=== PATIENT | male | born 1945 | race Caucasian/White ===

== ENCOUNTER → 2017-04-29 08:35 | Outpatient (CLI) | payer MEDICARE ==
[2016-08-08 14:28] VITALS: BMI 25.1
[~2017-04-29 08:35] MED LIST: AMBIEN5 MG PO; ASPIRIN325 MG PO; AVAPRO300 MG PO; BUPROPION XL300 MG PO; COREG6.25 MG PO; CRESTOR10 MG PO; DEPLIN15 MG PO; FISH OIL 1,2001 CAP PO; GLUCOPHAGE500 MG PO; HYDROCHLOROTH12.5 M1 PO; HYDROCODONE-APA1 TAB PO; LIVALO4 MG PO; NEXIUM20 MG PO; NEXIUM40 MG PO; PERCOCET 10/3251 TA1 PO; TRAZODONE HCL50 MG PO; VITAMIN D31000 UNI2 PO
== END | disposition home or self-care (01) ==
LOC: D.MRI 08:30
DX: M25.561 Pain in right knee (principal)

== ENCOUNTER 2017-05-22 09:10 | Day surgery (SDC) | payer MEDICARE ==
[~2017-05-22 09:10] MED LIST changes: +ACETAMINOPHEN500 M1 PO; +CO Q-10150 MG PO; +LYRICA150 MG PO; +MAGNESIUM GLUC500 M1 PO; +VIAGRA100 MG PO
[2017-05-22 10:44] VITALS: BP 149/72; BMI 25.1
[2017-05-22 10:50] LABS: CALC OSMOLALITY 288 mosm/kg (275-300); CALCIUM 9.2 mg/dL (8.5-10.1); CARBON DIOXIDE 24.1 mmol/L (21.0-32.0); CHLORIDE - SERUM 106 mmol/L (98-107); GLUCOSE 107 mg/dL (74-106); POTASSIUM - SERUM 4.5 mmol/L (3.5-5.1); SODIUM 139 mmol/L (136-145); UREA NITROGEN 42 mg/dL (7-18); eGFR NON AFRICAN AMERICAN 78 mL/min (90-120)
[2017-05-22 11:19] LABS: HEMATOCRIT 35.4 % (42.0-54.0); HEMOGLOBIN 11.6 g/dL (13.5-17.5); MCH 29.7 pg (26.0-34.0); MCHC 32.8 g/dL (31.0-37.0); MCV 90.8 fL (80.0-100.0); MEAN PLATELET VOLUME 9.2 fL (7.4-10.4); RBC 3.9 10x6/uL (4.20-6.10); RDW 13.8 % (11.5-14.5); WBC 8.2 10x3/uL (4.8-10.8)
[2017-05-22] MEDS ORDERED: HYDROCODONE-APA1 TAB PO (13:29)
--- NOTE | 2017-05-22 16:04 | NUR ---
1545 DISCHARGE INSTRUCTIONS COMPLETE. PRESCRIPTIONS GIVEN-DELYAED DISCHARGE DUE TO DR NOT SIGNING PRESCRITPION. PT HAS NO QUESTIONS OR CONCERNS. ESCORTED OUT BY VOLUNTEER.
--- NOTE | 2017-05-26 11:28 | OP ---
PATIENT NAME: PIOTR HINOJOSA MEDICAL RECORD: [id number] :47 LOCATION:D.OPS ADMISSION DATE: SURGEON: AAMIR CAZARES MD DATE OF OPERATION: 05/22/2017 PREOPERATIVE DIAGNOSIS: Medial meniscus tear of the right knee. POSTOPERATIVE DIAGNOSIS: Medial meniscus tear of the right knee. PROCEDURE: Arthroscopic partial medial meniscectomy. SURGEON: Aamir Cazares MD ANESTHESIA: General. INTRAOPERATIVE COMPLICATIONS: None. SUMMARY OF PATHOLOGIC FINDINGS: He had a complex tear of the posterior horn of the medial meniscus consistent with preoperative MRI. OPERATIVE SUMMARY IN DETAIL: After obtaining the appropriate preoperative orthopedic surgery consents as well as anesthetic consultation, evaluation and clearance, the patient was brought to the operating room and placed on the operating table in supine position. After general laryngeal mask was administered, tourniquet was placed about the proximal aspect of the right lower extremity. Right lower extremity was then prepped and draped in routine sterile fashion. The leg was elevated, exsanguinated, and tourniquet inflated to 250 mmHg. Routine inferolateral portal was established followed by superomedial portal and inferomedial portal. Diagnostic arthroscopy was done. The patellofemoral compartment as well as lateral compartment was pristine. Minimal amount of arthritis was seen in the medial compartment. Complex tear of the posterior horn of the medial meniscus was noted. A combination of meniscotome and an arthroscopic resector were utilized to debride the meniscus back to stable meniscal elements. Having completed this, the knee was insufflated with 30 cc of 0.25% Marcaine with epinephrine. Arthroscopy portals were closed in routine interrupted fashion using 4-0 Prolene. Sterile dressings were applied. Tourniquet was deflated. The patient was awakened and taken to the recovery room in stable condition. All final needle and sponge counts were correct. TRANSINT:[id number] Voice Confirmation ID: [id number] DOCUMENT ID: [id number] AAMIR CAZARES MD at 1128 CC: [id number] DICTATION DATE: 05/22/17 1332 MESSAGE BROKER DEVELOPER: 05/22/[address] [facility] 05/22/17 [id number] [place] [address]
== END 2017-05-22 15:45 | disposition home or self-care (01) ==
LOC: D.OPS 09:10
PROVIDERS: Anesthesiology
DX: S83.241A Other tear of medial meniscus, current injury, right knee, initial encounter (principal); I10 Essential (primary) hypertension; E11.9 Type 2 diabetes mellitus without complications; Z95.5 Presence of coronary angioplasty implant and graft; Z01.812 Encounter for preprocedural laboratory examination

== ENCOUNTER 2019-03-18 13:22 | Inpatient (IN) | payer MEDICARE ==
[~2019-03-18] VITALS: Ht 175.3 cm; Wt 74.4 kg
[2019-03-18] MEDS ORDERED: CRESTOR20 MG PO (13:33)
[2019-03-18 14:19] LABS: ALBUMIN 3.5 g/dL (3.4-5.0); ANION GAP 12.1 mmol/L (8-16); BILIRUBIN - TOTAL 0.77 mg/dL (0.2-1.3); CARBON DIOXIDE 27.2 mmol/L (21.0-32.0); CREATININE - SERUM 1.2 mg/dL (0.6-1.3); POTASSIUM - SERUM 4.3 mmol/L (3.5-5.1); PROTEIN - SERUM 7.3 g/dL (6.4-8.2)
[2019-03-18 14:27] LABS: TROPONIN-I 0.019 ng/mL (0.000-0.060)
--- NOTE | 2019-03-18 14:30 | NUR ---
SAMI OWUSU, AT BEDSIDE UPDATING PT ON POC.
[2019-03-18 14:39] LABS: BASOPHILS 0.2 % (0-2); EOSINOPHILS 0.4 % (0-7); HEMATOCRIT 37.7 % (42.0-54.0); HEMOGLOBIN 12.7 g/dL (13.5-17.5); IMMATURE GRANULOCYTES 0.2 % (0-5); LYMPHOCYTES 9.2 % (15-50); MCH 27.5 pg (26.0-34.0); MCHC 33.7 g/dL (31.0-37.0); MCV 81.8 fL (80.0-100.0); MEAN PLATELET VOLUME 9.1 fL (7.4-10.4); MONOCYTES 4.9 % (2-11); NEUTROPHILS 85.1 % (40-80); PLATELET COUNT 205 10x3/uL (130-400); RBC 4.61 10x6/uL (4.20-6.10); RDW 15.4 % (11.5-14.5); WBC 13.2 10x3/uL (4.8-10.8)
[2019-03-18 14:55] LABS: APPEARANCE CLEAR (CLEAR); BILIRUBIN NEGATIVE (NEGATIVE); COLOR STRAW (YELLOW); GLUCOSE NEGATIVE (NEGATIVE); KETONE NEGATIVE (NEGATIVE); NITRITE NEGATIVE (NEGATIVE); PROTEIN NEGATIVE (NEGATIVE); SPECIFIC GRAVITY 1.015 (1.005-1.020); UROBILINOGEN NORMAL (NORMAL)
--- NOTE | 2019-03-18 15:03 | NUR ---
1459-RECEIVED REPORT FROM FELTON IN THE ED.
--- NOTE | 2019-03-18 15:14 | NUR ---
1509-TO ROOM VIA WHEELCHAIR ON ROOM AIR. IV INFUSING TO LEFT HAND. WILL ADMIT.
[2019-03-18 15:19] VITALS: BP 130/64; BMI 24.4
[2019-03-18 15:24] VITALS: BP 130/64
--- NOTE | 2019-03-18 16:06 | NUR ---
PATIENT TO USE THE RESTROOM TO VOID SOON HE GOT TO THE ROOM.
--- NOTE | 2019-03-18 16:53 | NUR ---
BILATERAL SCD'S PLACED ON PATIENT AND TURNED ON.
--- NOTE | 2019-03-18 19:29 | NUR ---
REPORT REC'D. PT SEMI FOWLERS IN BED. NO S/S OF DISTRESS. BREATHING EVEN AND UNLABORED. PT DENIES ANY NEEDS AT THIS TIME. CALL LIGHT WITHIN REACH. BED IN LOWEST POSITION. WILL CONT WITH POC.
[2019-03-18 20:00] VITALS: BP 110/54
[2019-03-19] VITALS: BP 118/58
--- NOTE | 2019-03-19 00:23 | NUR ---
PT IS RESTING AT THIS TIME. NO S/S OF DISTRESS. BREATHING EVEN AND UNLABORED. CALL LIGHT WITHIN REACH. BED IN LOWEST POSITION. WILL CONT WITH POC.
[2019-03-19 04:00] VITALS: BP 102/48
[2019-03-19 05:36] LABS: BASOPHILS 0.2 % (0-2); HEMATOCRIT 32.8 % (42.0-54.0); HEMOGLOBIN 10.7 g/dL (13.5-17.5); IMMATURE GRANULOCYTES 0.1 % (0-5); LYMPHOCYTES 13.9 % (15-50); MCHC 32.6 g/dL (31.0-37.0); MCV 82.8 fL (80.0-100.0); MONOCYTES 5.8 % (2-11); RBC 3.96 10x6/uL (4.20-6.10); WBC 12.4 10x3/uL (4.8-10.8)
[2019-03-19 05:40] LABS: PLATELET COUNT 163 10x3/uL (130-400)
[2019-03-19 05:54] LABS: ALBUMIN 2.8 g/dL (3.4-5.0); ALKALINE PHOSPHATASE 75 U/L (46-116); BILIRUBIN - TOTAL 0.55 mg/dL (0.2-1.3); CALC OSMOLALITY 281 mosm/kg (275-300); CALCIUM 8.4 mg/dL (8.5-10.1); CARBON DIOXIDE 29.3 mmol/L (21.0-32.0); CHLORIDE - SERUM 104 mmol/L (98-107); CREATININE - SERUM 0.9 mg/dL (0.6-1.3); GLUCOSE 103 mg/dL (74-106); MAGNESIUM - SERUM 1.5 mg/dL (1.8-2.4); PHOSPHOROUS 2.6 mg/dL (2.5-4.9); POTASSIUM - SERUM 3.8 mmol/L (3.5-5.1); PROTEIN - SERUM 6.1 g/dL (6.4-8.2); SODIUM 139 mmol/L (136-145); TROPONIN-I < 0.017 ng/mL (0.000-0.060); UREA NITROGEN 24 mg/dL (7-18); eGFR NON AFRICAN AMERICAN 88 mL/min (90-120)
[2019-03-19 05:55] LABS: ALT (SGPT) 26 U/L (10-68)
--- NOTE | 2019-03-19 06:11 | NUR ---
I have reviewed this patient and I concur with the Shift Assessment completed by the Licensed Practical Nurse today this shift.
--- NOTE | 2019-03-19 06:12 | NUR ---
MAGNESIUM ADMINISTERED, PER ORDER R/T MAGNESIUM LEVEL THIS AM OF 1.5. SERUM MAGNESIUM LEVEL TO BE DRAWN @ 1030. BED IN LOWEST POSITION, SR X2, CALL LIGHT WITHIN REACH. WILL CONTINUE TO MONITOR.
--- NOTE | 2019-03-19 06:39 | NUR ---
PT RESTING IN BED WITH EYES CLOSED, RESPIRATIONS EVEN AND NONLABORED, NO S/S OF DISTRESS. AROUSES EASILY TO VOICE. PROTONIX ADMINISTERED, PER ORDER. DENIES PAIN AND NEEDS AT THIS TIME. BED IN LOWEST POSITION, SR X2, CALL LIGHT WITHIN REACH. WILL CONTINUE TO MONITOR.
--- NOTE | 2019-03-19 07:10 | NUR ---
ROUNDING DONE WITH PATIENT SITTING UP IN THE BED WITH NO NEEDS VOICED. SCD'S ON AND IN USE. LEFT HAND PIV SEEN WITH NS INFUSING AT 125 CC/HR. ON 2L PER NC. ON EP, K+ WAS 3.8, MAG 1.5 AND ALREADY COVERED. NEW LAB ORDERED FOR MAG. STRICT I AND O. ON HEART MONITOR SHOWING SR, HR 83.
[2019-03-19 08:37] VITALS: BP 98/58
--- NOTE | 2019-03-19 10:27 | NUR ---
PATIENT IS PLACED IN TEMORARY DROPLET ISOLATION FOR STAPH IN SPUTUM.
[2019-03-19 11:37] LABS: INR 1.14 (0.85-1.17); PROTIME 14.1 SECONDS (11.6-15.0)
[2019-03-19 11:38] LABS: D-DIMER-QUANTITATIVE 1.05 ug/mLFEU (0.20-0.54)
--- NOTE | 2019-03-19 12:01 | NUR ---
PATIENT IV FLUIDS HAS BEEN CHANGED TO SALINE LOCK ORDERED. NPO FOR CTA.
--- NOTE | 2019-03-19 12:18 | NUR ---
RETURNS FROM CTA, CAN NOW EAT. LUNCH TRAY GIVEN TO PATIENT. AT BEDSIDE.
[2019-03-19 12:30] VITALS: BP 98/52
--- NOTE | 2019-03-19 14:45 | EC ---
PATIENT:PIOTR HINOJOSA DATE OF SERVICE: 03/18/19 SEX: M MEDICAL RECORD: [id number] DATE OF : [birth year] LOCATION:D. D.212 AGE OF PATIENT: 74 ADMISSION DATE: 03/18/19 REFERRING PHYSICIAN: INTERPRETING PHYSICIAN: GILDA BARTON MD ECHOCARDIOGRAM REPORT ECHO CHARGES 4 ECHO COMPLETE Date: 03/19/19 CLINICAL DIAGNOSIS: CAD/SOB/FEVER/COUGH, HX CABG/MITRAL VALVE REPAIR ECHOCARDIOGRAPHIC MEASUREMENTS (adult normal given) AC root (d.<3.7cm) 2.6 cm LV Septum d (<1.2 cm> 1.4 cm Valve Excursion 1.6 cm LV Septum (systole) 1.6 cm Left Atria (s.<4.0cm> 4.5 cm LVPW d(<1.2cm) 1.7 cm RV (d.<2.3cm) 3.3 cm LVPW (sytole) 1.9 cm LV diastole(<5.6CM) 4.7 cm MV E-F(>70mm/sec) cm LV systole 2.7 cm LVOT Diameter 1.9 cm MV exc.(>10mm) 1.6 cm Est.ejection fraction (50-75%) % DOPPLER: LVIT cm/sec A 58.0 cm/sec E 151 cm/sec LA cm/sec RVSP 64 mmHg LVOT 143 cm/sec AOP1/2T m/s Asc. Ao 159 cm/sec RVOT 78 cm/sec RA cm/sec PA 133 cm/sec AV Gradient Peak 10.08mmHg AV Mean 5.10 mmHg AV Area 2.8 cm MV Gradient Peak 8.37 mmHg MV Mean 2.85 mmHg MV Area cm COMMENTS: Conche Loader And Unloader: Jorge MCCABE Aviation Engineer: Roland Bartno TAPE# PACS Pericardial Effusion N DATE OF SERVICE: 03/19/2019 PROCEDURE: Echocardiogram. FINDINGS: 1. Left ventricular chamber size is within normal limits. Left ventricular systolic function is normal. Overall ejection fraction estimated at 55%. 2. The left atrium is mildly dilated at 4.5 cm. Right atrium and right ventricular chamber sizes are as well mildly dilated. 3. Valvular structures have normal structure and motion. ECHOCARDIOGRAM REPORT [id number] PIOTR HINOJOSA 4. Doppler interrogation reveals no significant mitral insufficiency, severe tricuspid regurgitation, no other valvular insufficiency or stenosis. Pulmonary systolic pressure is elevated estimated 64 mmHg. 5. No evidence of pericardial effusion or left ventricular thrombus. TRANSINT:[id number] Voice Confirmation ID: [id number] DOCUMENT ID: [id number] GILDA BARTON MD at 1445 CC: [id number] DICTATION DATE: 03/19/19 1420 ARTIST MODEL: 03/19/19 1438 ADM IN [place] [id number] [place] [id number]
--- NOTE | 2019-03-19 15:31 | NUR ---
TO BRONCH VIA BED AND PROPER PPE.
--- NOTE | 2019-03-19 17:01 | NUR ---
1658-BACK FROM [facility] WITH HILDA. NPO X 2 HOURS. STILL IN DROPLET ISOLATION. WILL MONITOR.
--- NOTE | 2019-03-19 17:44 | NUR ---
NO STOOL FOR THIS SHIFT TO OBTAIN FOR SPECIMEN.
--- NOTE | 2019-03-19 18:20 | NUR ---
RESTING POST BRONCH PROCEDURE. RESP ARE EVEN, AROUSES EASILY WHEN AWOKEN. WILL CONINTUE TO MONITOR.
[2019-03-19 19:29] LABS: EOS BF 2 %; MACROPHAGES BF 7 %; MESOTHELIALS BF 2 %; NEUT - BF 54 %
[2019-03-19 20:00] VITALS: BP 180/79
--- NOTE | 2019-03-19 22:38 | NUR ---
INITIAL ROUNDS COMPLETED AT 1920 HRS. PT DENIED ANY DISCOMFORT. PT IS IN DROPLET ISOLATION. ASSESSMENT COMPLETED AT 1950 HRS. SBP 180. ALERT AND ORIENTED TO PERSON,PLACE AND TIME. LÓPEZ. IV TO R HAND SL LUNGS DIMINISHED IN BASES BILAT. ABD SOFT WITH ACTIVE BS NOTED. PT REFUSES SCD'S. SR PER CM HR 96. PM MEDS GIVEN PER ORDERS. TEMP 100.8 AT 2210 HRS. TYLENOL 650MG PO GIVEN AT 2215 HRS. PT CURRENTLY RESTING WITH EYES CLOSED. RESP EVEN AND REGULAR. SR UP X2,CALL LIGHT WITHIN REACH.
[2019-03-20] VITALS: BP 98/45
--- NOTE | 2019-03-20 00:59 | NUR ---
PT AWAKE; DENIES ANY DISCOMFORT. SR UP X1,CALL LIGHT WITHIN REACH.
--- NOTE | 2019-03-20 02:09 | NUR ---
PT RESTING WITH EYES CLOSED. RESP EVEN AND REGULAR. SR UP X2, CALL LIGHT WITHIN REACH.
[2019-03-20 04:00] VITALS: BP 103/56
--- NOTE | 2019-03-20 04:19 | NUR ---
PT RESTING WITH EYES CLOSED. RESP EVEN AND REGULAR. SR UP X2, CALL LIGHT WITHIN REACH.
[2019-03-20 05:52] LABS: BASOPHILS 0.2 % (0-2); EOSINOPHILS 3.7 % (0-7); HEMATOCRIT 31.9 % (42.0-54.0); HEMOGLOBIN 10.2 g/dL (13.5-17.5); IMMATURE GRANULOCYTES 0.2 % (0-5); LYMPHOCYTES 18.4 % (15-50); MCH 26.8 pg (26.0-34.0); MCV 83.9 fL (80.0-100.0); MEAN PLATELET VOLUME 9.1 fL (7.4-10.4); MONOCYTES 6.3 % (2-11); NEUTROPHILS 71.2 % (40-80); PLATELET COUNT 153 10x3/uL (130-400); RDW 15.8 % (11.5-14.5); WBC 10.1 10x3/uL (4.8-10.8)
[2019-03-20 06:11] LABS: % SATURATION 6 % (15-55); IRON 17 ug/dl (35-150); TOTAL IRON BIND CAPACITY 250 ug/dl (260-445); UNSAT IRON BIND CAPACITY 233 ug/dl (150-375)
--- NOTE | 2019-03-20 06:18 | NUR ---
VSS. SR PE CM. AFEBRILE THIS AM. PT STAES FEELS MUCH IMPROVED. NEEDS MET; WILL CONTINUE TO MONITOR.
[2019-03-20 06:32] LABS: CALC OSMOLALITY 281 mosm/kg (275-300); CALCIUM 8.1 mg/dL (8.5-10.1); CARBON DIOXIDE 28.3 mmol/L (21.0-32.0); CHLORIDE - SERUM 106 mmol/L (98-107); FERRITIN 170 ng/mL (3-244); GLUCOSE 100 mg/dL (74-106); LDH 152 U/L (85-227); MAGNESIUM - SERUM 1.7 mg/dL (1.8-2.4); PHOSPHOROUS 2.8 mg/dL (2.5-4.9); POTASSIUM - SERUM 3.8 mmol/L (3.5-5.1); SODIUM 140 mmol/L (136-145); UREA NITROGEN 20 mg/dL (7-18); eGFR NON AFRICAN AMERICAN 78 mL/min (90-120)
--- NOTE | 2019-03-20 07:00 | NUR ---
RECEIVED REPORT. ASSUMED CARE OF PATIENT. PATIENT RESTING IN BED WITH EYES OPEN, ATTENTION TO HAND HELD TABLET. RESP EVEN AND UNALBORED. PATIENT IN DROPLET ISOLATION UNTIL CULTURES RESULTED. DENIES NEEDS. NO DISTRESS.
[2019-03-20 08:34] VITALS: BP 135/59
--- NOTE | 2019-03-20 09:04 | NUR ---
TELEMETRY REMOVED AND IV WRAPPED. PATIENT IN SHOWER. COMPLETE LINEN CHANGE PROVIDED AT THIS TIME.
[2019-03-20 12:59] VITALS: BP 108/54
--- NOTE | 2019-03-20 13:08 | NUR ---
PATIENT HAS NOT HAD A BM. UNABLE TO COLLECT STOOL SPECIMEN.
--- NOTE | 2019-03-20 13:55 | NUR ---
RESTING IN BED. RECEIVING IV ABT AT THIS TIME. NO DISTRESS. CALL LIGHT WITHIN REACH.
--- NOTE | 2019-03-20 16:31 | NUR ---
PATIENT COMPLAIN OF IV TO LEFT HAND HURTING. NO INFILTRATION NOTED. NO COMPLAINTS OF PAIN WITH FLUSHING IV. 20 GAUGE IV REMOVED FROM LEFT HAND. CATHETER TIP INTACT. NO BLEEDING FROM SITE. 2X2 GAUZE APPLIED AND SECURED WITH BANDAID. 20 GAUGE IV PLACED TO RIGHT WRIST X 1 STICK. GOOD BLOOD RETURN, EASY FLUSH. TOLERATED IV PLACEMENT WELL. TAPED, DATED AND SECURED. TOLERATING IV ABX AT THIS TIME.
--- NOTE | 2019-03-20 17:23 | NUR ---
OOB TO CHAIR AT BEDSIDE CONSUMING PM MEAL WITH ATTENTION TOWARD PERSONAL TABLET. NO DISTRESS.
[2019-03-20 17:53] VITALS: BP 139/75
[2019-03-20 20:00] VITALS: BP 129/61
--- NOTE | 2019-03-20 22:05 | NUR ---
INITIAL ROUNDS COMPLETED AT 1905 HRS. PT DENIES ANY DISCOMFORT. ASSESSMENT COMPLETED AT 1925 HRS. VSS. SR PER CM HR 83. ALERT AND ORIENTED TO PERSON,PLACE AND TIME. LÓPEZ. LUNGS DIMINISHED IN BASES BILAT. IV TO R HAND SL. PM MEDS GIVEN. STOOL SAMPLE SENT TO LAB AT 2140 HRS. PT CURRENTLY PLAYING ON HIS COMPUTER. SR UP X2, CALL LIGHT WITHIN REACH. PT ON DROPLET ISOLATION.
--- NOTE | 2019-03-20 23:57 | NUR ---
PT SITTING UP IN THE CHAIR. NO DISTRESS NOTED. CALL LIGHT WITHIN REACH.
[2019-03-21] VITALS: BP 119/60
--- NOTE | 2019-03-21 01:55 | NUR ---
PT RESTING WITH EYES CLOSED. RESP EVEN AND REGULAR. SR UP X1,CALL LIGHT WITHIN REACH.
[2019-03-21 04:00] VITALS: BP 136/65
--- NOTE | 2019-03-21 04:28 | NUR ---
PT RESTING WITH EYES CLOSED. RESP EVEN AND REGULAR. SR UP X2, CALL LIGHT WITHIN REACH.
[2019-03-21 05:07] LABS: BASOPHILS 0.4 % (0-2); EOSINOPHILS 5.2 % (0-7); HEMATOCRIT 30.5 % (42.0-54.0); HEMOGLOBIN 9.8 g/dL (13.5-17.5); IMMATURE GRANULOCYTES 0.2 % (0-5); LYMPHOCYTES 22.1 % (15-50); MCH 26.6 pg (26.0-34.0); MCHC 32.1 g/dL (31.0-37.0); MCV 82.9 fL (80.0-100.0); MEAN PLATELET VOLUME 8.9 fL (7.4-10.4); MONOCYTES 8.5 % (2-11); NEUTROPHILS 63.6 % (40-80); PLATELET COUNT 158 10x3/uL (130-400); RBC 3.68 10x6/uL (4.20-6.10); RDW 15.7 % (11.5-14.5); WBC 8.2 10x3/uL (4.8-10.8)
[2019-03-21 05:22] LABS: CALC OSMOLALITY 282 mosm/kg (275-300); CALCIUM 8.5 mg/dL (8.5-10.1); CARBON DIOXIDE 27.4 mmol/L (21.0-32.0); CHLORIDE - SERUM 105 mmol/L (98-107); CREATININE - SERUM 0.8 mg/dL (0.6-1.3); GLUCOSE 106 mg/dL (74-106); MAGNESIUM - SERUM 1.5 mg/dL (1.8-2.4); PHOSPHOROUS 3.1 mg/dL (2.5-4.9); POTASSIUM - SERUM 4.1 mmol/L (3.5-5.1); SODIUM 141 mmol/L (136-145); UREA NITROGEN 19 mg/dL (7-18); eGFR NON AFRICAN AMERICAN > 90 mL/min (90-120)
--- NOTE | 2019-03-21 06:06 | NUR ---
VSS THROUGHOUT NIGHT. PT DENIED ANY DISCOMFORT. NEEDS MET; WILL CONTINUE TO MONITOR.
--- NOTE | 2019-03-21 07:00 | NUR ---
RECEIVED REPORT. ASSUMED CARE OF PATIENT. CALL LIGHT WITHIN REACH. NO DISTRESS. RESP EVEN AND UNLABORED.
[2019-03-21 09:37] VITALS: BP 138/65
--- NOTE | 2019-03-21 10:04 | NUR ---
PER JENNIFER IN THE LAB AND THE MICRO TECH, PATIENT NO LONGER NEEDS TO BE IN ISOLATION! ISOLATION REMOVED.
[2019-03-21 12:44] VITALS: BP 126/67
--- NOTE | 2019-03-21 14:00 | NUR ---
PATIENT OUT OF ROOM AMBULATING IN HALLWAYS WITH HIS . PATIENT IS GLAD TO BE ABLE TO GET OUT OF HIS ROOM. NO DISTRESS.
[2019-03-21 16:07] LABS: ACID FAST SMEAR Negative (()); AFB SPECIMEN PROCESSING Concentration (())
--- NOTE | 2019-03-21 17:28 | NUR ---
PM MEAL CONSUMED IN CHAIR AT BEDSIDE. PATIENT RESTING IN BED WITH ATTENTION TOWARDS TELEVISION AT THIS TIME. RECEIVING IV IRON INFUSION. NO DISTRESS. DENIES NEEDS. CALL LIGHT WITHIN REACH.
--- NOTE | 2019-03-21 19:47 | NUR ---
BEDSIDE. ROUNDING COMPELTED AT 1910 HRS. PT DENEID ANY DISCOMFORT. SR UP X2, CALL LIGHT WITHIN REACH.
[2019-03-21 20:00] VITALS: BP 147/76
--- NOTE | 2019-03-21 23:52 | NUR ---
ASSESSMENT COMPLETED AT 2009 HRS. VSS. SR PER CM HR 78. ALERT AND ORIENTED TO PERSON,PLACE AND TIME. LÓPEZ. IV TO R WRIST SL. LUNGS DIMINISHED IN BASES BILAT. PM MEDS GIVEN PER ORDERS. PT CURRENTLY RESTING WITH EYES CLOSED. RESP EVEN AND REGULAR. SR UP X2,CALL LIGHT WITHIN REACH.
[2019-03-22 00:18] VITALS: BP 116/55
--- NOTE | 2019-03-22 02:48 | NUR ---
PT RESTING WITH EYES CLOSED. RESP EVEN AND REGULAR. SR UP X2, CALL LIGHT WITHIN REACH.
[2019-03-22 04:00] VITALS: BP 126/70
--- NOTE | 2019-03-22 04:31 | NUR ---
PT RESTING WITH EYES CLOSED. RESP EVEN AND REGULAR. SR UP X2, CALL LIGHT WITHIN REACH.
[2019-03-22 05:34] LABS: BASOPHILS 0.6 % (0-2); EOSINOPHILS 7.6 % (0-7); HEMATOCRIT 30.8 % (42.0-54.0); HEMOGLOBIN 10.2 g/dL (13.5-17.5); IMMATURE GRANULOCYTES 0.3 % (0-5); LYMPHOCYTES 19.7 % (15-50); MCH 27.3 pg (26.0-34.0); MCHC 33.1 g/dL (31.0-37.0); MCV 82.6 fL (80.0-100.0); MEAN PLATELET VOLUME 8.6 fL (7.4-10.4); MONOCYTES 8.5 % (2-11); NEUTROPHILS 63.3 % (40-80); PLATELET COUNT 179 10x3/uL (130-400); RBC 3.73 10x6/uL (4.20-6.10); RDW 15.5 % (11.5-14.5); WBC 7.9 10x3/uL (4.8-10.8)
[2019-03-22 06:13] LABS: CALC OSMOLALITY 278 mosm/kg (275-300); CALCIUM 8.5 mg/dL (8.5-10.1); CARBON DIOXIDE 29.5 mmol/L (21.0-32.0); CHLORIDE - SERUM 105 mmol/L (98-107); CREATININE - SERUM 0.8 mg/dL (0.6-1.3); GLUCOSE 94 mg/dL (74-106); MAGNESIUM - SERUM 1.7 mg/dL (1.8-2.4); PHOSPHOROUS 3.6 mg/dL (2.5-4.9); POTASSIUM - SERUM 3.9 mmol/L (3.5-5.1); SODIUM 139 mmol/L (136-145); UREA NITROGEN 16 mg/dL (7-18); eGFR NON AFRICAN AMERICAN > 90 mL/min (90-120)
--- NOTE | 2019-03-22 06:42 | NUR ---
VSS THROUGHOUT NIGHT. SR PER CM. PT DENIED ANY DISCOMFORT. NEEDS MET;WILL CONTINUE TO MONITOR.
--- NOTE | 2019-03-22 07:42 | NUR ---
ROUNDING DONE WITH PATIENT HAVING NO NEEDS VOICED. GLASSES ON. ON EP, LABS ARE BEING COVERED. ON HEART MONITOR. RIGHT WRIST PIV SEEN WITH SALINE LOCK.
[2019-03-22 08:28] VITALS: BP 151/78
[2019-03-22 12:58] VITALS: BP 138/69
[2019-03-22 13:22] VITALS: Ht 175.3 cm; Wt 74.4 kg
[2019-03-22] MEDS ORDERED: VIBRAMYCIN 100100 MG PO (13:57)
[2019-03-22] MEDS ORDERED: COREG6.25 MG PO (14:01)
[2019-03-22] MEDS ORDERED: CRESTOR10 MG PO (14:01)
[2019-03-22] MEDS ORDERED: PROTONIX40 MG PO (14:01)
[2019-03-22] MEDS ORDERED: AVAPRO150 MG PO (14:01)
--- NOTE | 2019-03-22 14:46 | MORECARE ---
CASE MANAGEMENT DISCHARGE SUMMARY PATIENT: PIOTR HINOJOSA UNIT: [id number] ADM DATE: 03/18/19 AGE: 74 : 46 SEX: M ROOM/BED: D.2372 AUTHOR: SHIRLENE,DOC PHYSICIAN: REFERRING PHYSICIAN: WILNER MORALES MD DATE OF SERVICE: 03/22/19 Discharge Plan Patient Name: PIOTR HINOJOSA Facility: [facility]:Dafter : 1945 Planned Disposition: Home Anticipated Discharge Date: 03/22/19 Discharge Date: Expected LOS: 4 Initial Reviewer: [email or web address] Initial Review Date: 03/22/2019 Generated: 03/22/19 3:45 pm Comments DCP- Discharge Planning Updated by [email or web address]: Alex Valdez on 03/22/19 1:[address] Patient Name: PIOTR HINOJOSA Admission Status: Elective Accout number: [id number] Admission Date: 03-18-2019 : 1945 Admission Diagnosis:SHORTNESS OF BREATH Attending: WILNER MCNEIL Current LOS: 4 Anticipated DC Date: 03-22-2019 Planned Disposition: Home Primary Insurance: [employer] CHOICE PPO MCR ADVANT Discharge Planning Comments: CM MET WITH PT IN ROOM TO DISCUSS DISCHARGE PLANNING AND NEEDS. PT REPORTS LIVING AT HOME INDEPENDENTLY WITH HIS SPOUSE. PT HAS NO MEDICAL EQUIPMENT AND NO OUTSIDE SERVICES ASSISTING IN THE HOME. CM DISCUSSED AVAILABILITY OF HOME HEALTH, REHAB SERVICES AND MEDICAL EQUIPMENT. PT DENIES DISCHARGE NEEDS, REPORTS HIS WILL PICK HIM UP FOR DISCHARGE HOME. IMPORTANT MESSAGE FROM MEDICARE PROVIDED AND EXPLAINED. Drupal Programmer: Alex Vladez DCPIA - Discharge Planning Initial Assessment Updated by [email or web address]: Alex Valdez on 03/22/19 2:44 pm * Is the patient Alert and Oriented? Yes * How many steps to enter\exit or inside your home? 4-O / 17-I * PCP DR. AZIZA DAVALOS, [place] * Pharmacy [facility] * Preadmission Environment Home with Family * ADLs Independent * Equipment None * Other Equipment [facility] - MEDICAL EQUIPMENT PROVIDER PREFERENCE * List name and contact numbers for known caregivers / representatives who currently or will assist patient after discharge: ANTIONETTE HINOJOSA, SPOUSE, * Verbal permission to speak to the caregivers and representatives has been obtained from the patient. N/A * Community resources currently utilized None * Please name any agencies selected above. NONE * Additional services required to return to the preadmission environment? No * Can the patient safely return to the preadmission environment? Yes * Has this patient been hospitalized within the prior 30 days at any hospital? No Coverage Notice Reviewer: [id number] Nathan Valdez Notice Issued Date-Time: 03/22/2019 14:25 Notice Type: IM Appeals Notice Notice Delivered To: Patient Relationship to Patient: Groundman/Lineman Name: Delivery Method: HAND - Hand Delivered Donna Days: Prior Verbal Notification: Recipient Understood Notice: Yes Recipient Signature: Yes Med Rec Note Co-signed by Attending: Coverage Notice Comment: Patient Name: PIOTR HINOJOSA Page [phone] at 1446 All edits/amendments must be made on the electronic document DICTATION DATE: 03/22/191444 COLOR STRAINING BAG WASHER: JESSICA 03/22/19 1445 RPT#: [id number] DC DATE: STATUS: ADM IN [facility] [address] [place] [address] END OF REPORT
--- NOTE | 2019-03-22 15:38 | NUR ---
HEART MONITOR TURNED IN PAITENT IS BEING DISCHARGED. GETTING DRESSED.
--- NOTE | 2019-03-22 16:14 | NUR ---
VERBAL AND WRITTEN DISCHARGE INSTRUCTIONS GIVEN TO NUHA. SALINE LOCK REMOVED WITH CATH TIP INTACT. DISCHARGED HOME VIA WHEELCHAIR.
[2019-03-24 15:10] LABS: FUNGUS STAIN Final report (())
[2019-03-25 14:09] LABS: ANCA - ANTIMYELOPEROXIDASE <9.0 U/mL (0.0-9.0); ANCA - ANTIPROTEINASE 3 <3.5 U/mL (0.0-3.5); ANCA - ATYPICAL <1:20 titer (Neg:<1:20); ANCA - CYTOPLASMIC <1:20 titer (Neg:<1:20); ANCA - PERINUCLEAR <1:20 titer (Neg:<1:20)
[2019-03-26 07:14] LABS: FUNGUS MYCOLOGY CULTURE Preliminary report (())
== END 2019-03-22 16:16 | disposition home or self-care (01) | DRG 177 ==
LOC: D.ER 13:22 → D.M2 14:37
PROVIDERS: Family Medicine; Internal Medicine Pulmonary Disease; ADMIT Family Medicine; ATTEND Family Medicine
PROC: 0B9G8ZX Drainage of Left Upper Lung Lobe, Via Natural or Artificial Opening Endoscopic, Diagnostic (ICD-10-PCS; 2019-03-19)
PROC: 0B9F8ZX Drainage of Right Lower Lung Lobe, Via Natural or Artificial Opening Endoscopic, Diagnostic (ICD-10-PCS; principal; 2019-03-19 15:39)
DX: J15.211 Pneumonia due to Methicillin susceptible Staphylococcus aureus (principal); J96.01 Acute respiratory failure with hypoxia; R04.2 Hemoptysis; E87.1 Hypo-osmolality and hyponatremia; J44.0 Chronic obstructive pulmonary disease with (acute) lower respiratory infection; I25.10 Atherosclerotic heart disease of native coronary artery without angina pectoris; Z86.73 Personal history of transient ischemic attack (TIA), and cerebral infarction without residual deficits; I10 Essential (primary) hypertension; E78.5 Hyperlipidemia, unspecified; I11.0 Hypertensive heart disease with heart failure; I50.9 Heart failure, unspecified; D50.9 Iron deficiency anemia, unspecified; A49.01 Methicillin susceptible Staphylococcus aureus infection, unspecified site

== ENCOUNTER 2019-04-08 06:57 | Day surgery (SDC) | payer MEDICARE ==
[2019-04-06 11:02] LABS: HEMATOCRIT 37.5 % (42.0-54.0); HEMOGLOBIN 12.5 g/dL (13.5-17.5); MCH 27.4 pg (26.0-34.0); MCHC 33.3 g/dL (31.0-37.0); MCV 82.1 fL (80.0-100.0); MEAN PLATELET VOLUME 8.7 fL (7.4-10.4); RBC 4.57 10x6/uL (4.20-6.10); RDW 16.2 % (11.5-14.5)
[~2019-04-08] VITALS: Ht 175.3 cm; Wt 74.8 kg
[~2019-04-08 06:57] MED LIST changes: +AMOXICILLIN875 MG PO; +AVAPRO150 MG PO; +CRESTOR20 MG PO; +PROTONIX40 MG PO; +VIBRAMYCIN 100100 MG PO; +ZETIA10 MG PO
[2019-04-08 07:48] VITALS: BP 143/68; Ht 175.3 cm; Wt 74.8 kg
[2019-04-08] MEDS ORDERED: HYDROCODON-ACE1 EA10 PO (09:25)
--- NOTE | 2019-04-09 15:25 | OP ---
PATIENT NAME: PIOTR HINOJOSA MEDICAL RECORD: [id number] :47 LOCATION:D.OPS ADMISSION DATE: SURGEON: AAMIR CAZARES MD DATE OF OPERATION: 04/08/2019 PREOPERATIVE DIAGNOSIS: Medial meniscus tear of the right knee. POSTOPERATIVE DIAGNOSIS: Medial meniscus tear of the right knee. PROCEDURE: Arthroscopic partial medial meniscectomy of the right knee. SURGEON: Aamir Cazares MD ANESTHESIA: General. INTRAOPERATIVE COMPLICATIONS: None. SUMMARY OF PATHOLOGIC FINDINGS: The patient had a deeper tear of the medial meniscus than was found on his previous arthroscopy 2 years ago. 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 The lateral meniscus was shown to have some minor fraying, but no tearing was noted. OPERATIVE SUMMARY IN DETAIL: After obtaining the appropriate preoperative orthopedic surgery consents as well as anesthetic consultation, evaluation, and clearance, the patient was brought to the operating room and placed on the operating table in the supine position. After adequate general laryngeal mask airway was administered, tourniquet was placed about the proximal aspect of the right lower extremity. Right lower extremity was then prepped and draped in routine sterile fashion. At this point, the appropriate preoperative timeout was taken by all including the operative site identification as well as the patient's current medications, allergies, and antibiotics given. The leg was then elevated and exsanguinated, tourniquet was inflated to 350 mmHg. Routine inferolateral portal was established followed by superomedial portal and inferomedial portal. Diagnostic arthroscopy showed the patient to have undersurface tearing of the medial meniscus. This was gently debrided back using a combination of 3.5 full radius resector as well as a meniscotome. Unfortunately, the patient had complete removal of the meniscus at the medial most point. The posterior lateral root was in good overall position as was the anterior horn. Having completed this, the knee was insufflated with 30 cc of 0.25% Marcaine with 80 mg of Depo-Medrol. Arthroscopy portals were closed in routine interrupted fashion using 4-0 Prolene. Sterile dressings were applied. The patient was awakened and taken to the recovery room in stable condition. All final needle and sponge counts were correct. TRANSINT:[id number] Voice Confirmation ID: [id number] DOCUMENT ID: [id number] OPERATIVE REPORT [id number] PIOTR HINOJOSA MD, AAMIR BROWN at 1525 CC: [id number] DICTATION DATE: 04/09/19 1040 SCRAP CARRIER: 04/09/19 1121 [facility] 04/08/19 [place] [id number] [place] [id number]
== END 2019-04-08 11:30 | disposition home or self-care (01) ==
LOC: D.OPS 06:57 → D.PAN 11:45
PROVIDERS: Anesthesiology; ATTEND Orthopaedic Surgery
DX: S83.241A Other tear of medial meniscus, current injury, right knee, initial encounter (principal); Z01.812 Encounter for preprocedural laboratory examination